=== PATIENT | female | born 2000 | race Caucasian/White ===

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

== ENCOUNTER 2020-04-07 22:06 | Emergency (ER) | payer OTHER ==
[~2020-04-07] VITALS: Ht 170.2 cm; Wt 86.2 kg
[~2020-04-07 22:06] MED LIST changes: +IBUPROFEN 600600 M1 PO; +LEXAPRO20 MG PO; +SPRINTEC1 EACH PO; +TRAMADOL 50 MG50 MG PO
[2020-04-07] MEDS ORDERED: OMEPRAZOLE20 M2 PO (22:25)
[2020-04-08] MEDS ORDERED: ZOFRAN ODT4 MG PO (02:34)
[2020-04-08 02:43] VITALS: BP 105/44
== END 2020-04-08 02:43 | disposition home or self-care (01) ==
LOC: M.ERS 22:06
DX: G43.909 Migraine, unspecified, not intractable, without status migrainosus (principal); R11.2 Nausea with vomiting, unspecified; Z90.49 Acquired absence of other specified parts of digestive tract; Z91.040 Latex allergy status